=== PATIENT | male | born 1975 | race Caucasian/White ===

== ENCOUNTER 2020-02-16 03:29 | Emergency (ER) | payer SELFPAY ==
[2020-02-16] MEDS ORDERED: Naproxen 500 MG Tab PO STA (04:17)
[2020-02-16] MEDS ORDERED: Orphenadrine 100 MG Tab.ER PO STA (04:17)
--- NOTE | 2020-02-16 04:19 | EDM.PDOC ---
ED HPI GENERAL MEDICAL PROBLEM - General Chief Complaint: Flank Pain Stated Complaint: RIGHT FLANK PAIN Time Seen by Provider: 02/16/20 03:46 Source of Information: Reports: Patient History Limitations: Reports: No Limitations - History of Present Illness INITIAL COMMENTS - FREE TEXT/NARRATIVE: Mr. Dixon is a very pleasant 44-year-old gentleman who presents to the ED with lower back pain. 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 He states that the bouncing around in the truck made it worse. No direct injury to his lower back. No associated fever, urinary symptoms, or gross hematuria. He was seen in the clinic on 02/13/2020, where, medical records indicate, x-rays of his lumbar spine and pelvis were obtained, which were read as unremarkable. A urinalysis found trace occult blood with 0-5 RBCs, negative leukocyte esterase with no WBCs, nitrate negative with few bacteria, and 0-5 squamous epithelial cells. Based on the finding of the blood, the patient was felt to be suffering from kidney stones, and was subsequently prescribed Flomax, which he states he has been taking as prescribed, along with 1 tablet of Aleve every 8 hours. Despite the Flomax and Aleve, however, the patient states that his pain has only gotten worse. He cannot sleep. He states that his pain is felt across his entire lower back, although it is worse on the right than the left. It is present with a variety of positions and movements, although if he sits perfectly still, he has no pain. It does not radiate to his abdomen, groin, buttock, or down either lower extremity. He denies having any tingling, numbness, or weakness of either of his lower extremities. He denies any incontinence of bowel or bladder. No prior similar symptoms. Here in the ED, the patient is found to be hemodynamically stable, afebrile, saturating 97% on room air. Other than his lower back pain, the patient denies having a recent fever, ch ills, sore throat, ear pain, nasal or sinus congestion, cough, dyspnea, chest pain, palpitations, nausea, vomiting, constipation, diarrhea, abdominal pain, urinary symptoms, recent weight gain or weight loss, recent bloody bowel movements or black bowel movements, recent joint aches, headaches, or rashes. The patient's PCP is Brenna Cleveland NP. Right Flank Pain Score (Numeric/FACES): 10 - Related Data Allergies Allergy/AdvReac Type Severity Reaction Status Date / Time No Known Allergies Allergy Verified 02/16/20 03:39 Home Meds: Home Meds Orphenadrine [Norflex] 1 tab PO Q12H PRN #14 tab.er 02/16/20 [Rx] Tamsulosin HCl [Flomax] 1 tab PO DAILY 02/16/20 [History] Past Medical History Cardiovascular History: Reports: High Cholesterol (untreated) - Past Surgical History HEENT Surgical History: Reports: Oral Surgery (wisdom teeth extraction), Tonsillectomy Social & Family History - Tobacco Use Smoking Status *Q: Never Smoker Second Hand Smoke Exposure: No - Caffeine Use Caffeine Use: Reports: Coffee - Alcohol Use Alcohol Use History: Yes Alcohol Use Frequency: Rarely - Recreational Drug Use Recreational Drug Use: No - Living Situation & Occupation Living situation: Reports: Single, Alone Occupation: Employed ([employer]) ED ROS GENERAL - Review of Systems Review Of Systems: Comprehensive ROS is negative, except as noted in HPI. ED EXAM,LOWER BACK PAIN/INJURY - Physical Exam Exam: See Below Exam Limited By: No Limitations General Appearance: Alert, WD/WN, No Apparent Distress (appears to be in pain when asked to move) Eye Exam: Bilateral Eye: EOMI, Normal Inspection Ears: Normal External Exam, Hearing Grossly Normal Nose: Normal Inspection Throat/Mouth: Normal Inspection, Normal Lips, Normal Voice, No Airway Compromise Head: Atraumatic, Normocephalic Neck: Normal Inspection, Full Range of Motion Respiratory/Chest: No Respiratory Distress, Lungs Clear, Normal Breath Sounds, No Accessory Muscle Use Cardiovascular: Normal Peripheral Pulses, Regular Rate, Rhythm, No Edema, No Gallop, No JVD, No Murmur, No Rub GI/Abdominal: Normal Bowel Sounds, Soft, Non-Tender, No Organomegaly, No Distention, No Abnormal Bruit, No Mass (Male) Exam: Deferred Rectal (Males) Exam: Deferred Back Exam: Normal Inspection (no visible abnormalities, such as swelling, erythema, ecchymosis, or abrasion), Full Range of Motion, CVA Tenderness (L) (but also with palpation of the flank without percussion), CVA Tenderness (R) (but also with palpation of the flank without percussion), Muscle Spasm (Reproducible tenderness to palpation of the lower back musculature), Paraspinal Tenderness, Other (Straight leg raise induces lower back pain without radiculopathy symptoms at 80 degrees bilaterally. The patient is able to flex the spine to 45 degrees, limited only by lower back pain, without radiculopathy. He is able to extend the spine to 45 degrees. He is able to tilt the spine to 45 degrees bilaterally. He is able to twist the spine to 45 degrees bilaterally. Unilateral knee bend is normal bilaterally.). No: Vertebral Tenderness Extremities: Normal Inspection, Normal Range of Motion, No Pedal Edema, Normal Capillary Refill Neurological: Alert, Normal Dorsiflexion, Normal Plantar Flexion, Normal Reflexes, No Motor/Sensory Deficits, Oriented x 3 Psychiatric: Normal Affect Skin Exam: Warm, Dry, Intact, Normal Color, No Rash Course - Vital Signs Last Recorded V/S: Last Vital Signs Temp 36.4 C 02/16/20 03:36 Pulse 82 02/16/20 03:36 Resp 20 02/16/20 03:36 BP 117/90 02/16/20 03:36 Pulse Ox 97 02/16/20 03:36 - Orders/Labs/Meds Meds: Medications Discontinued Medications Generic Name Dose Route Start Last Admin Trade Name Freq PRN Reason Stop Dose Admin Naproxen 500 mg 02/16/20 04:17 Naprosyn PO 02/16/20 04:18 ONETIME STA Orphenadrine Citrate 100 mg 02/16/20 04:17 Norflex PO 02/16/20 04:18 ONETIME STA - Re-Assessments/Exams Free Text/Narrative Re-Assessment/Exam: 02/16/20 04:17 As above, the patient has had lower back pain, worse on the right than the left, since last week, 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 The pain does not radiate to his abdomen or groin, and he has not had any urinary symptoms. He was seen in the clinic on Wednesday, 02/12, where x-rays of his lumbar spine and pelvis were negative, but a urinalysis showed trace occult blood with 0-5 RBCs, and was otherwise unremarkable. He was diagnosed with a ureterolith and prescribed Flomax, which he has been taking along with [id number] naproxen, without relief of his symptoms. On examination here in the ED, the patient is found to have reproducible pain with various movement and positions, and no pain if he remains perfectly still. He has CVA tenderness, but also tenderness to direct palpation of his lower back musculature without percussion. His examination is consistent with low back muscle spasm, and not compatible with either a herniated intervertebral disc, spinal arthropathy, or ne phrolithiasis. An emergency CT of his abdomen and pelvis without contrast to evaluate for ureterolithiasis is not indicated. I will start him on oral Norflex with the recommendation that he take that along with naproxen, every 12 hours. I would expect him to have significant improvement in his symptoms within the next 2 days. If he does not have significant improvement by 02/19/2020, I would like him to return to the clinic for consideration of an MRI of his lower back. Lastly, while there is no real harm if the patient continues to take Flomax, I don't believe that he is deriving any benefit from it. Departure - Departure Time of Disposition: 04:23 Disposition: Home, Self-Care 01 Condition: Good Clinical Impression: Spasm of muscle of lower back - Discharge Information *PRESCRIPTION DRUG MONITORING PROGRAM REVIEWED*: Not Applicable *COPY OF PRESCRIPTION DRUG MONITORING REPORT IN PATIENT ALICIA: Not Applicable Referrals: Brenna Cleveland NP [Nurse Practitioner] - Forms: ED Department Discharge Additional Instructions: You were seen in the emergency room for lower back pain, worse on the right than the left, since last week, made worse with certain movements and positions. Based on your history and physical examination, your lower back pain is due to spasms of the lower back muscles. Your pain is almost certainly not due to a kidney stone. You have been started on the muscle relaxant Norflex, and a prescription for Norflex has been sent to the [facility]. Take 1 tablet of Norflex every 12 hours, starting this evening, 02/16/2020, as prescribed. We recommend that you continue to take [id number] naproxen (Aleve), 1 or 2 tablets every 12 hours, with food, as needed for back pain. As discussed, it is very important that you stay active. Swimming is best, but walking is good, too. If you do not have significant relief by 02/19/2020, we recommend that you return to the clinic to discuss the option of obtaining an MRI of your lower back. If any other problems, please do not hesitate to return to the ER. Sepsis Event Note (ED) - Evaluation Sepsis Screening Result: No Definite Risk - Focused Exam Vital Signs: Vital Signs Temp Pulse Resp BP Pulse Ox 02/16/20 03:36 36.4 C 82 20 117/90 97
== END 2020-02-16 04:35 | disposition home or self-care (01) ==
LOC: JD.ED 03:29
DX: M62.830 Muscle spasm of back (principal)
CPT/HCPCS: 99283; A9270